=== PATIENT | male | born 1995 | race Caucasian/White ===

== ENCOUNTER 2018-08-13 15:33 | Emergency (ER) | payer SELFPAY ==
[~2018-08-13] VITALS: Ht 180.3 cm; Wt 80.7 kg
[2018-08-13 15:37] VITALS: BP_SYST 144
[2018-08-13] MEDS ORDERED: MORPHINE 4 MG/ML INJ. SYRINGE IVP ONE (16:30)
[2018-08-13] MEDS ORDERED: ONDANSETRON HCL 4 MG/2 ML VIAL IVP ONE (16:45)
[2018-08-13] MEDS ORDERED: ONDANSETRON 4 MG ODT TAB PO ONE (17:00)
[2018-08-13] MEDS ORDERED: HYDROcodone/ACETAMIN 5-325 MG TAB (NORCO/ VICODIN) PO ONE (17:00)
[2018-08-13 18:00] VITALS: BP_SYST 140
== END 2018-08-13 18:00 | disposition home or self-care (01) ==
LOC: SED 15:33
DX: G44.209 Tension-type headache, unspecified, not intractable (principal); R03.0 Elevated blood-pressure reading, without diagnosis of hypertension
CPT/HCPCS: 70450; 99284; Q0162